=== PATIENT | female | born 1975 | race Caucasian/White ===

== ENCOUNTER 2019-03-15 11:35 | Emergency (ER) | payer MEDICAID ==
[~2019-03-15] VITALS: Ht 172.7 cm; Wt 82.1 kg
[2019-03-15 11:39] VITALS: Ht 172.7 cm; Wt 82.1 kg
[2019-03-15 15:10] VITALS: BP 142/84
== END 2019-03-15 15:10 | disposition home or self-care (01) ==
LOC: ED 11:35
DX: N83.202 Unspecified ovarian cyst, left side (principal); Z88.0 Allergy status to penicillin; Z91.040 Latex allergy status